=== PATIENT | female | born 1985 | race Caucasian/White ===

== ENCOUNTER 2017-07-14 19:16 | Emergency (ER) | payer SELFPAY ==
[~2017-07-14] VITALS: Ht 162.6 cm; Wt 81.4 kg
[~2017-07-14 19:16] MED LIST: AMOXICILLIN 50500 MG PO; ATIVAN 0.50.5 MG/TAB PO; LORTAB 5/500 501 TAB PO; NIGHT-TIME COL300 ML; NO HOME MEDICATIONS; PREDNISONE20 MG PO
[2017-07-14 19:19] VITALS: BP 152/85; TEMP 99.4
[2017-07-14] MEDS ORDERED: FLONASEALLERGY NS (19:22)
[2017-07-14 20:14] LABS: BASO % 0.3 % (0.0-2.0); EOS % 0.3 % (0-4.0); GRAN # 8.3 (1.4-6.5); GRAN % 71.8 % (42.2-75.2); HEMATOCRIT 37.4 % (37.0-47.0); HEMOGLOBIN 13.2 g/dl (12.5-16.0); LYMPH # 2.6 (1.2-3.4); LYMPH % 22.7 % (20.0-51.0); MEAN CELL VOLUME 86 fl (80.0-100.0); MEAN CORPUSCULAR HEMOGLOBIN 30 pg (27.0-31.0); MEAN CORPUSCULAR HGB CONC 35 g/dl (33.0-37.0); MEAN PLATELET VOLUME 9.3 fl (7.4-10.4); MONO # 0.5 (0.1-0.6); MONO % 4.6 % (1.7-9.3); PLATELET COUNT 222 K/mm3 (130-400); RED BLOOD COUNT 4.35 M/mm3 (4.10-5.30); WHITE BLOOD COUNT 11.5 K/mm3 (4.8-10.8)
[2017-07-14 20:34] LABS: ADJUSTED CALCIUM 9.2 mg/dL (8.4-10.2); ALANINE AMINOTRANSFERASE 31 U/L (9-52); ALBUMIN 4.5 gm/dL (3.5-5.0); ALKALINE PHOSPHATASE 57 U/L (50-136); ANION GAP 12 mmol/L (7-16); BILIRUBIN,TOTAL 0.6 mg/dL (0.0-1.0); BLOOD UREA NITROGEN 9 mg/dL (7-17); CALCIUM 9.6 mg/dL (8.4-10.2); CARBON DIOXIDE 21 mmol/L (22-30); CHLORIDE 106 mmol/L (98-107); CREATININE, serum 0.67 mg/dL (0.52-1.25); GLUCOSE 77 mg/dL (74-106); POTASSIUM 3.6 mmol/L (3.4-5.0); SODIUM 139 mmol/L (137-145); TOTAL PROTEIN 7.8 gm/dL (6.4-8.2)
[2017-07-14 20:46] LABS: TROPONIN-I < 0.012 ng/mL (0.000-0.034)
[2017-07-14] MEDS ORDERED: ATARAX 25MG25 MG/TAB PO (21:37)
[2017-07-14 21:52] VITALS: PULSE 78
== END 2017-07-14 21:53 | disposition home or self-care (01) ==
LOC: COL.ER 19:16
PROVIDERS: Nurse Practitioner
DX: F41.9 Anxiety disorder, unspecified (principal); R07.89 Other chest pain; R06.00 Dyspnea, unspecified; Z98.890 Other specified postprocedural states; Z87.891 Personal history of nicotine dependence